=== PATIENT | male | born 1960 | race Asian ===

== ENCOUNTER 2016-05-12 20:19 | Inpatient (IN) | payer OTHER ==
[~2016-05-12] VITALS: Ht 172.7 cm; Wt 85.7 kg
[2016-05-12] MEDS ORDERED: NITROGLYCERIN 2% 1 GM OINT PKT TD STA (22:27)
[2016-05-12] MEDS ORDERED: morphine 2 MG INJ IV STA (22:27)
[2016-05-12] MEDS ORDERED: ONDANSETRON 4 MG INJ IV STA (22:27)
[2016-05-12] MEDS ORDERED: ASPIRIN 81 MG TAB PO STA (22:27)
[2016-05-12] MEDS ORDERED: METO-448 PO (22:43)
[2016-05-12] MEDS ORDERED: FAMO40TA52 PO (22:44)
[2016-05-12 22:46] LABS: ADD SCAN DIFF NO
[2016-05-12 22:51] LABS: BASOPHILS % 0.5 % (0.0-2.0); EOSINOPHILS # 0.1 10^3/ul (0.0-0.5); EOSINOPHILS % 1.8 % (0.0-7.0); HEMATOCRIT 44.4 % (42.0-52.0); HEMOGLOBIN 15.2 g/dl (14.0-18.0); LYMPHOCYTES # 0.8 10^3/ul (0.8-2.9); LYMPHOCYTES % 12.4 % (15.0-51.0); MEAN CORPUSCULAR HEMOGLOBIN 31.4 pg (29.0-33.0); MEAN CORPUSCULAR HGB CONC 34.2 g/dl (32.0-37.0); MEAN CORPUSCULAR VOLUME 91.7 fl (82.0-101.0); MEAN PLATELET VOLUME 11.2 fl (7.4-10.4); MONOCYTE # 0.5 10^3/ul (0.3-0.9); MONOCYTES % 8.8 % (0.0-11.0); NEUTROPHIL # 4.6 10^3/ul (1.6-7.5); NEUTROPHILS % 76.2 % (39.0-77.0); PLATELET COUNT 190 10^3/UL (140-415); RED BLOOD COUNT 4.84 10^6/ul (4.70-6.10); RED CELL DISTRIBUTION WIDTH 12.3 % (11.5-14.5); WHITE BLOOD COUNT 6.1 10^3/ul (4.8-10.8)
--- NOTE | 2016-05-12 22:58 | RADRPT ---
PROCEDURE: XR Chest. CLINICAL INDICATION: Chest pain. TECHNIQUE: Portable AP upright view of the chest was obtained. COMPARISON: None. FINDINGS: The cardiomediastinal silhouette is within normal limits. The lungs are clear. There is no evidenc e for pleural effusion, pneumothorax or pulmonary vascular congestion. The osseous structures are i ntact with no evidence for acute abnormality. Faint calcification within the aortic arch is visualiz ed. RPTAT:HJJR IMPRESSION: 1.No evidence for acute intrathoracic pathology. 2. Aortic atherosclerosis is present. Physician Lotus Date Time Electronically viewed and signed by Physician Lotus on 05/12/2016 22:57 JR/
[2016-05-12 23:10] LABS: ALBUMIN 4.4 g/dl (3.3-4.9)
[2016-05-12 23:11] LABS: INR 1.15; PARTIAL THROMBOPLASTIN TIME 37.2 Sec (25.0-35.0); POTASSIUM 4.1 mmol/L (3.5-5.1); PROTIME 14.7 Sec (12.2-14.2); PT RATIO 1.1
[2016-05-12 23:13] LABS: BILIRUBIN,INDIRECT 0.5 mg/dl (0-1.1); BILIRUBIN,TOTAL 0.5 mg/dl (0.2-1.3); CREATININE 0.92 mg/dl (0.61-1.24)
[2016-05-12 23:14] LABS: CALCIUM 9.3 mg/dl (8.4-10.2)
[2016-05-12 23:15] LABS: ALBUMIN/GLOBULIN RATIO 1.22
[2016-05-12 23:22] LABS: TROPONIN-I 0.047 ng/ml (0.00-0.12)
[2016-05-13] MEDS ORDERED: morphine 2 MG INJ IV PRN (07:30)
[2016-05-13] MEDS ORDERED: ONDANSETRON 4 MG INJ IV PRN (07:30)
[2016-05-13] MEDS ORDERED: hydrALAzine 20 MG INJ IV PRN (07:30)
[2016-05-13] MEDS ORDERED: NACL 0.9% 3 ML SYG IV SCH (07:30)
[2016-05-13] MEDS ORDERED: ACETAMINOPHEN 325 MG TAB PO PRN (07:30)
[2016-05-13] MEDS ORDERED: NITROGLYCERIN (SL) 0.4 MG TAB SL PRN (07:30)
[2016-05-13] MEDS ORDERED: ALBUTEROL/IPRATROPIUM (NEB) 3 ML AMP HHN PRN (07:30)
[2016-05-13 08:09] LABS: ADD SCAN DIFF NO
[2016-05-13 08:12] LABS: ABNORMAL IP MESSAGE 1; BASOPHILS % 0.4 % (0.0-2.0); EOSINOPHILS # 0.1 10^3/ul (0.0-0.5); EOSINOPHILS % 0.9 % (0.0-7.0); HEMATOCRIT 42.6 % (42.0-52.0); HEMOGLOBIN 14.8 g/dl (14.0-18.0); LYMPHOCYTES # 0.5 10^3/ul (0.8-2.9); LYMPHOCYTES % 6.7 % (15.0-51.0); MEAN CORPUSCULAR HEMOGLOBIN 31.6 pg (29.0-33.0); MEAN CORPUSCULAR HGB CONC 34.7 g/dl (32.0-37.0); MEAN CORPUSCULAR VOLUME 90.8 fl (82.0-101.0); MONOCYTE # 0.5 10^3/ul (0.3-0.9); MONOCYTES % 5.9 % (0.0-11.0); NEUTROPHIL # 6.7 10^3/ul (1.6-7.5); PLATELET COUNT 164 10^3/UL (140-415); RED BLOOD COUNT 4.69 10^6/ul (4.70-6.10); RED CELL DISTRIBUTION WIDTH 12.2 % (11.5-14.5); WHITE BLOOD COUNT 7.8 10^3/ul (4.8-10.8)
[2016-05-13 08:39] LABS: ALBUMIN 4.2 g/dl (3.3-4.9); POTASSIUM 3.7 mmol/L (3.5-5.1)
[2016-05-13 08:41] LABS: CREATININE 0.73 mg/dl (0.61-1.24)
[2016-05-13 08:42] LABS: ALBUMIN/GLOBULIN RATIO 1.27; BILIRUBIN,INDIRECT 0.8 mg/dl (0-1.1); BILIRUBIN,TOTAL 0.8 mg/dl (0.2-1.3); CALCIUM 8.9 mg/dl (8.4-10.2); TOTAL PROTEIN 7.5 g/dl (6.1-8.1)
[2016-05-13 08:43] LABS: CHOL/HDL RATIO 5.1 RATIO; MAGNESIUM 2.3 mg/dl (1.7-2.5)
--- NOTE | 2016-05-13 08:52 | HP ---
Date/Time of Note Date/Time of Note DATE: 05/13/16 TIME: 08:47 Assessment/Plan VTE Prophylaxis VTE Prophylaxis Intervention: LMWH Lines/Catheters IV Catheter Type (from Nrsg): Saline Lock Assessment/Plan Assessment/Plan 1. Chest Pain: r/o ACS - EKG is ne. first trop neg. will f/u rest - Oxygen, beta-joselin and PRN NTG and morphine - will order 2D-echo - cardiology as needed 2. HTN: not at goal - cont med and adjust as needed HPI/ROS Admit Date/Time Admit Date/Time Hx of Present Illness This is a 55 yo male with hx of HTN who presented to [facility] complaining of Chest pain. It is diffuse with radiation to left arm. No associated SOB, N/V or diaphoresis. Pt was seen by PCP yesterday and was given PPI, but chest pain returned. In ER, SBP was noted to be as high as in 170s. EKG and basic labs are within acceptable range. . PMH/Family/Social Social History Smoking Status: Never smoker Exam/Review of Systems Vital Signs Vitals Vital Signs Date Time Temp Pulse Resp B/P Pulse Ox O2 Delivery O2 Flow Rate FiO2 05/13/16 07:30 98.0 71 18 116/71 99 Room Air Exam Constitutional: alert, oriented, well developed Head: atraumatic, normocephalic Eyes: EOMI, PERRL Neck: non-tender, supple Respiratory: clear to auscultation, normal air movement Cardiovascular: nl pulses, regular rate and rhythm Gastrointestinal: non-tender, soft Extremities: normal pulses Labs Result Diagram: 05/13/1680205/13/16 08 Medications Medications Current Medications Ondansetron HCl (Zofran Inj) 4 mg Q6H PRN IV NAUSEA AND/OR VOMITING; Start 05/13 at 07:30 Aspirin (Aspirin) 81 mg DAILY PO ; Start 05/13/16 at 09:00 Nitroglycerin (Nitroglycerin (Sl Tab) 0.4 Mg) 1 tab Q5M PRN SL CHEST PAIN; Start 05/13/16 at 07:30 Acetaminophen (Tylenol Tab) 650 mg Q6H PRN PO PAIN LEVEL 1-3 OR FEVER; Start at 07:30 Morphine Sulfate (morphine) 2 mg Q4H PRN IV PAIN LEVEL 7-10; Start 05/13/16 at 07:30 Enoxaparin Sodium (Lovenox) 40 mg DAILY SC ; Start 05/13/16 at 09:00 Famotidine (Pepcid) 40 mg DAILY PO ; Start 05/13/16 at 09:00 Metoprolol Tartrate (Lopressor) 25 mg BID PO ; Start 05/13/16 at 09:00 Hydralazine HCl (Apresoline) 10 mg Q4H PRN IV SBP > 160; Start 05/13/16 at 07:30 IRINA MUIR MD May 13, 2016 08:52
[2016-05-13 08:55] LABS: TROPONIN-I 0.054 ng/ml (0.00-0.12)
[2016-05-13 09:13] LABS: THYROID STIMULATING HORMONE 1.26 MIU/L (0.465-4.680)
[2016-05-13] MEDS: ASPIRIN 81 MG TAB PO SCH (09:50)
[2016-05-13] MEDS: FAMOTIDINE 20 MG TAB PO SCH (09:50)
[2016-05-13] MEDS: METOPROLOL 25 MG TAB PO SCH ×2 (09:51→20:49)
[2016-05-13] MEDS: ENOXAPARIN 40 MG/0.4 ML SYG SC SCH (09:52)
[2016-05-13 15:12] VITALS: TEMP 98.4
[2016-05-13 15:55] VITALS: Ht 172.7 cm; Wt 85.7 kg
[2016-05-13 15:56] VITALS: BP 129/73; PULSE 77; RESP 18
[2016-05-13 16:36] VITALS: PULSE 71
--- NOTE | 2016-05-13 16:51 | CONS ---
DATE OF ADMISSION: 05/13/2016 DATE OF CONSULTATION: 05/13/2016 REASON FOR CONSULTATION: Chest pain, assess for acute coronary syndrome. REQUESTING PHYSICIAN: Dr. Salvador Ramon from the hospitalist service. HISTORY OF PRESENT ILLNESS: Mr. Devlin is a 55-year-old male with a history of hypertension who presen berna with 4 to 5 days of ongoing substernal chest pain described as initially stabbing sensation with pressure-like component radiating to his arms, both at rest and with exertion. Upon arrival in [facility] emergency department, temperature 97.3, blood pressure 175/101, pulse 78, respiratory rate 24, sat ting 100%. The patient's labs revealed white count 6.1, hemoglobin 15.2, platelet count 190, a sodi um of 145, potassium 4.1, creatinine 0.92, BUN 18, AST 43, ALT 77, BP 136. Troponin negative. LDL 146, HDL 42. TSH of 1.26. INR 1.1. The patient underwent a chest x-ray revealing no evidence of acute intrathoracic pathology. The pat ient's electrocardiogram revealed normal sinus rhythm at a rate of 83 with normal axis, normal inter vals, nonspecific ST throughout diffusely. The patient was subsequently admitted to the floor and _ ___ states chest pain has improved. The patient had an additional troponin return negative. PAST MEDICAL HISTORY: As above in HPI. MEDICATIONS CURRENTLY IN HOSPITAL: 1. Aspirin 81 mg daily. 2. Lovenox ____ subcu daily. 3. Pepcid 40 mg daily. 3. Metoprolol 25 mg p.o. b.i.d. 4. Nitroglycerin. 5. Tylenol p.r.n. 6. Morphine p.r.n. 7. DuoNebs. 8. Hydralazine IV push p.r.n. ALLERGIES: NO KNOWN DRUG ALLERGIES. SOCIAL HISTORY: No tobacco, ETOH or illicit drug use. FAMILY HISTORY: No history of sudden cardiac or early CAD. REVIEW OF SYSTEMS: As above in HPI. CONSTITUTIONAL: No fevers, chills. PULMONARY: No current shortness of breath. CARDIOVASCULAR: Intermittent chest pain. GASTROINTESTINAL: No vomiting. GENITOURINARY: No hematuria. MUSCULOSKELETAL: Degenerative joint disease. PSYCHIATRIC: The patient denies depression. NEUROLOGIC: No documented history of CVA. ENDOCRINE: No documented history of diabetes mellitus. PHYSICAL EXAMINATION: VITAL SIGNS: Temperature 97.3, blood pressure is 113/72, pulse 68, respirations 18, saturating 98%. GENERAL: The patient is alert, awake, in no acute distress. NECK: JVP approximately 8 cm water. CHEST: Fair air movement throughout. HEART: Regular rate and rhythm. Normal S1, S2, I/ systolic murmur, nondisplaced PMI. ABDOMEN: Positive bowel sounds, soft. EXTREMITIES: No pitting edema, 1+ pulses bilaterally, posterior palpable. LABORATORIES: As above in HPI, with most recent from today, sodium 142, potassium 3.7, creatinine 0 .7, BUN 18. Troponin negative. White blood count 7.8, hemoglobin 14.8, platelet count 164. IMAGING STUDIES: As above in HPI. No further imaging studies for my review at this time. ECG: As above in HPI. No further electrocardiograms for my review at this time. IMPRESSION: 1. Chest pain, assess for acute coronary syndrome. 2. Abnormal electrocardiogram, assess for acute coronary syndrome. 3. Hypertension, under reasonable control. RECOMMENDATIONS: 1. At this time, would maintain the patient on telemetry monitoring to follow rhythm and rate close ly. 2. Serial ____troponin ____patient's chest pain was not due to acute coronary syndrome or acute franky cardial infarction. 3. We will follow the patient's 2D echo for assessment of ejection fraction, wall motion and any ma ojey valve abnormalities. 4. We will continue to check serial EKGs to assess for any significant ongoing changes. EKG in the morning, EKG for any complaints of chest pain or change in rhythm. 5. Depending on the patient's ongoing troponin analysis, EKG analysis and echocardiogram findings, the patient will likely benefit from for further risk stratification with a stress test, which can b e scheduled as an inpatient versus outpatient. Thank you for allowing me to take part in the care of this patient. I will continue to follow along very closely with you. Further recommendations will be made as the patient progresses through the inpatient hospital clinical course. Dictated By: SALINA IBARRA/LEONEL Conf#: [id number] DID#: [id number] CC: SALVADOR RAMON MD;*EndCC*
[2016-05-13 20:22] VITALS: PULSE 70
[2016-05-13 20:23] VITALS: BP 102/50; RESP 16
[2016-05-13 23:57] VITALS: BP 120/67; RESP 16
[2016-05-14] VITALS (8 sets, daily range): BP systolic 131–142; BP diastolic 71–74; PULSE 60–76; RESP 16–20
[2016-05-14 06:57] LABS: ADD SCAN DIFF NO
[2016-05-14 07:03] LABS: CREATININE 0.9 mg/dl (0.61-1.24)
[2016-05-14 07:03] LABS: BASOPHILS % 0.2 % (0.0-2.0); EOSINOPHILS # 0.1 10^3/ul (0.0-0.5); HEMATOCRIT 43.5 % (42.0-52.0); HEMOGLOBIN 14.9 g/dl (14.0-18.0); LYMPHOCYTES # 0.7 10^3/ul (0.8-2.9); MEAN CORPUSCULAR HEMOGLOBIN 31.6 pg (29.0-33.0); MEAN CORPUSCULAR HGB CONC 34.3 g/dl (32.0-37.0); MEAN CORPUSCULAR VOLUME 92.4 fl (82.0-101.0); MEAN PLATELET VOLUME 11.4 fl (7.4-10.4); MONOCYTE # 0.8 10^3/ul (0.3-0.9); MONOCYTES % 9.5 % (0.0-11.0); NEUTROPHIL # 6.5 10^3/ul (1.6-7.5); NEUTROPHILS % 80.1 % (39.0-77.0); PLATELET COUNT 162 10^3/UL (140-415); RED BLOOD COUNT 4.71 10^6/ul (4.70-6.10); RED CELL DISTRIBUTION WIDTH 12.3 % (11.5-14.5); WHITE BLOOD COUNT 8.1 10^3/ul (4.8-10.8)
[2016-05-14 07:04] LABS: CALCIUM 9.1 mg/dl (8.4-10.2); PHOSPHORUS 3.5 mg/dl (2.5-4.9)
[2016-05-14 07:05] LABS: MAGNESIUM 2.2 mg/dl (1.7-2.5)
[2016-05-14 07:09] LABS: CHOL/HDL RATIO 4.9 RATIO
[2016-05-14] MEDS: ASPIRIN 81 MG TAB PO SCH (08:27)
[2016-05-14] MEDS: METOPROLOL 25 MG TAB PO SCH (08:27)
[2016-05-14] MEDS: FAMOTIDINE 20 MG TAB PO SCH (08:27)
[2016-05-14] MEDS: ENOXAPARIN 40 MG/0.4 ML SYG SC SCH (08:30)
--- NOTE | 2016-05-14 10:35 | PDOCDIS ---
Discharge Instructions CONDITION Patient Condition: Good HOME CARE INSTRUCTIONS: Special Diet: cardiac ACTIVITY: Activity Restrictions: No Restrictions FOLLOW UP/APPOINTMENTS Appointments Follow up with PCP as out-pt GARCIA TABOR MD May 14, 2016 10:35
[2016-05-14] MEDS ORDERED: METO-448 PO (10:37)
[2016-05-14] MEDS ORDERED: ATOR10TA65 PO (10:37)
[2016-05-14] MEDS ORDERED: ASPI81TA3 PO (10:37)
[2016-05-14] MEDS ORDERED: REGADENOSON 0.4 MG/5 ML SYG ONE (11:28)
--- NOTE | 2016-05-14 11:37 | DS ---
DATE OF ADMISSION: 05/13/2016 DATE OF DISCHARGE: 05/14/2016 CONSULTANTS: Dr. Greg Oviedo. PROCEDURES: 1. A 2D echocardiogram. 2. Cardiolite stress test. IMAGING: Chest x-ray: No evidence of acute intrathoracic pathology. Atherosclerosis is sent. DISCHARGE DIAGNOSES: 1. Atypical chest pain, acute coronary syndrome was ruled out by negative troponin and patient will be discharged on beta joselin, aspirin, statin. 2. Atherosclerosis of aorta on aspirin and statin. 3. Essential hypertension, well controlled on metoprolol. 4. Dyslipidemia. Patient has been started on Lipitor. LABORATORY DATA: Sodium 144, potassium 4.0, chloride 106, bicarbonate 27, BUN 20, creatinine 0.90, glucose 94. Hemoglobin is at 5.3. Triglyceride 105, total cholesterol 223, LDL 157, HDL 45. TSH 1 .260. WBC 8.1, hemoglobin 14.9, hematocrit 43.5, platelet 162. MEDICATIONS: 1. Aspirin 81 mg. 2. Lipitor 10 mg. 3. Pepcid 20 mg. 4. Metoprolol 25 mg p.o. b.i.d. ALLERGIES: NO KNOWN DRUG ALLERGIES. HOSPITAL COURSE: This is a 55-year-old gentleman with past medical history of hypertension who pres ents to [facility] secondary to having chest discomfort such as chest pain which i s diffuse with radiation to the left arm, not associated with shortness of breath, nausea, vomiting, diarrhea, or diaphoresis. The patient was seen by his primary care physician and was started on Pe pcid secondary to abdominal discomfort, although patient stated that this pain was different than th e pain that he had in the emergency room. His systolic blood pressure was high as 170. EKG and basic lab was within normal limits. The EKG did not show any sign of acute ST elevation or depression, n o sign of ischemia. The patient was started on aspirin, nitroglycerin, morphine and oxygen and was admitted to telemetry floor, was seen and evaluated by cardiology, Dr. Oviedo. A 2D echocardiogram was obtained. The patient was set up for Cardiolite stress test this morning, which he tolerated the procedure well. At this time, patient is medically stable to be discharged home with a close follo wup with his primary care physician as outpatient. PHYSICAL EXAMINATION: VITAL SIGNS: Temperature 98.3, pulse 67, respiration 20, blood pressure 131/71 and 142/74, oxygen 9 6% on room air. DIET: Cardiac diet. ACTIVITY: As tolerated. Dictated By: GARCIA TABOR MD PN/NTS Conf#: [id number] DID#: [id number]
--- NOTE | 2016-05-14 11:59 | CONS ---
Date/Time of Note Date/Time of Note DATE: 05/14/16 TIME: 11:56 Assessment/Plan Assessment/Plan Chief Complaint/Hosp Course IMPRESSION: 1. Chest pain, assess for acute coronary syndrome.-negative troponin x 3./NL EF by echo this admit 2. Abnormal electrocardiogram, assess for acute coronary syndrome. 3. Hypertension, under reasonable control. Recc: -Tele -Continue asa -Consider low dose BB to improve BP control in setting od chest pain -Lexiscan stress test today Problems: Consultation Date/Type/Reason Admit Date/Time May 13, 2016 at 00:24 Initial Consult Date 05/13/2016 Type of Consultation: Cardiology Reason for Consultation chest pain Referring Provider: SALVADOR REID MD Exam/Review of Systems Vital Signs Vitals Vital Signs Date Time Temp Pulse Resp B/P Pulse Ox O2 Delivery O2 Flow Rate FiO2 05/14/16 08:32 68 05/14/16 07:26 98.3 20 142/74 96 05/13/16 15:56 Room Air Intake and Output 05/13/16 05/13/16 05/14/16 15:00 23:00 07:00 Intake Total 600 ml 250 ml Balance 600 ml 250 ml Exam Review of Systems: CONSTITUTIONAL: No fevers, chills. PULMONARY: No sob CARDIOVASCULAR: intermittent chest pain GASTROINTESTINAL: No nausea/vomiting. GENITOURINARY: No hematuria/dysuria. MUSCULOSKELETAL: No myagias/arthalgias. PSYCHIATRIC: The patient denies depression. NEUROLOGIC: No weakness Constitutional: alert, oriented Psych: no complaints Head: normocephalic ENMT: mucosa pink and moist Neck: jvd (8cm water), supple Respiratory: clear to auscultation Cardiovascular: regular rate and rhythm Gastrointestinal: non-tender, soft Musculoskeletal: muscle tone (normal) Extremities: edema (none) Neurological: other (No focal deficits) Results Result Diagram: 05/14/16 0619 05/14/16 0614 Results 24 hrs Laboratory Tests Test 05/13/16 13:30 05/13/16 17:20 05/14/16 06:14 05/14/16 06:19 Troponin I 0.028 0.022 Anion Gap 15 Blood Urea Nitrogen 20 Calcium Level 9.1 Carbon Dioxide Level 27 Chloride Level 106 Cholesterol Level 223 H Cholesterol/HDL Ratio 4.9 Creatinine 0.90 Glucose Level 94 HDL Cholesterol 45 LDL Cholesterol, Calculated 157 Magnesium Level 2.2 Phosphorus Level 3.5 Potassium Level 4.0 Sodium Level 144 Triglycerides Level 105 Basophils # 0.0 Basophils % 0.2 Eosinophils # 0.1 Eosinophils % 1.0 Hematocrit 43.5 Hemoglobin 14.9 Lymphocytes # 0.7 L Lymphocytes % 9.0 L Mean Corpuscular Hemoglobin 31.6 Mean Corpuscular Hemoglobin Concent 34.3 Mean Corpuscular Volume 92.4 Mean Platelet Volume 11.4 H Monocytes # 0.8 Monocytes % 9.5 Neutrophils # 6.5 Neutrophils % 80.1 H Nucleated Red Blood Cells # 0.0 Nucleated Red Blood Cells % 0.0 Platelet Count 162 Red Blood Count 4.71 Red Cell Distribution Width 12.3 White Blood Count 8.1 Medications Medications Current Medications Ondansetron HCl (Zofran Inj) 4 mg Q6H PRN IV NAUSEA AND/OR VOMITING; Start 05/13 at 07:30 Aspirin (Aspirin) 81 mg DAILY PO Last administered on 05/14/16 08:27; Admin Dose 81 MG; Start 05/13/16 at 09:00 Nitroglycerin (Nitroglycerin (Sl Tab) 0.4 Mg) 1 tab Q5M PRN SL CHEST PAIN; Start 05/13/16 at 07:30 Acetaminophen (Tylenol Tab) 650 mg Q6H PRN PO PAIN LEVEL 1-3 OR FEVER Last administered on 05/13/16 16:16; Admin Dose 650 MG; Start 05/13/16 at 07:30 Morphine Sulfate (morphine) 2 mg Q4H PRN IV PAIN LEVEL 7-10; Start 05/13/16 at 07:30 Enoxaparin Sodium (Lovenox) 40 mg DAILY SC Last administered on 05/14/16 08:30 ; Admin Dose 40 MG; Start 05/13/16 at 09:00 Famotidine (Pepcid) 40 mg DAILY PO Last administered on 05/14/16 08:27; Admin Dose 40 MG; Start 05/13/16 at 09:00 Metoprolol Tartrate (Lopressor) 25 mg BID PO Last administered on 05/14/16 08: 27; Admin Dose 25 MG; Start 05/13/16 at 09:00 Hydralazine HCl (Apresoline) 10 mg Q4H PRN IV SBP > 160; Start 05/13/16 at 07:30 SALINA VAIL May 14, 2016 11:59
--- NOTE | 2016-05-14 13:08 | CARRPT ---
DATE OF PROCEDURE: 05/14/2016 PROCEDURE: Lexiscan Cardiolite stress test, electrocardiogram portion. INDICATION: Chest pain, assess for ischemia. BASELINE VITAL SIGNS AND ELECTROCARDIOGRAM: Pulse 66, blood pressure 143/83. Electrocardiogram rev eals normal sinus rhythm, rate of 64, normal axis, isolated T wave flattening in lead aVL. PROCEDURE: The patient underwent standard Lexiscan infusion protocol over 10 seconds followed by ra diolabeled tracer. The patient's test was stopped due to completion of protocol. Maximal achieved blood pressure during the test 128/73. Maximal achieved heart rate during the test 89. ELECTROCARDIOGRAM FINDINGS: The patient did not develop any new Lexiscan-induced ST or T wave camejo es from baseline abnormalities. No documented PVCs. SYMPTOMS: The patient had no complaints of chest pain or shortness of breath during stress testing. IMPRESSION: 1. No Lexiscan-induced ST or T wave changes from baseline abnormalities which are diagnostic of car diac ischemia. 2. No complaints of chest pain or shortness of breath during stress testing. 3. No documented premature ventricular contractions during stress testing. 4. Report of nuclear images to follow in separate dictation. Dictated By: SALINA IBARRA/LEONEL Conf#: [id number] DID#: [id number] CC: GARCIA TABOR MD;*EndCC*
--- NOTE | 2016-05-14 13:54 | RADRPT ---
PROCEDURE: Lexiscan myocardial perfusion study CLINICAL INDICATION: 55 -year-old patient complaining of chest pain. TECHNIQUE: Lexiscan 0.4 mg intravenously separate acquisition gated myocardial perfusion SPECT usi ng Tc 99m Myoview 29.4 mCi intravenously at stress and Tc-99m Myoview, 10.4 mCi intravenously at res t was performed using the rest/stress sequence. Poststress Myoview SPECT images were obtained in th e supine position. COMPARISON: No prior studies. FINDINGS: Perfusion images reveal a small mild partially reversible perfusion abnormality in the apical and di stal anteroseptal wall possibly related to soft tissue attenuation. Lexiscan post stress gated SPECT images demonstrate no wall motion abnormalities. IMPRESSION: 1. No definite evidence of stress-induced ischemia. 2. No wall motion abnormalities. 3. The left ventricle ejection fraction at stress is 67%. A call report was made to Dr. Oviedo at 01:53 p.m. on May 14, 2016. RPTAT: HH .Alexia Graham MD, MD Date Time Electronically viewed and signed by .Alexia Graham MD, on 05/14/2016 13:54 .L/
--- NOTE | 2016-05-14 14:24 | RADRPT ---
Echocardiogram Report Patient Name: AMEE WINTER Gender: Male Date: 1960 Study Date: 13-May-2016 Line Up Worker: Lico Campos RAFAEL Location: [facility] Ref. Physician: IRINA MUIR Quality: Good Procedures: Transthoracic echocardiogram with complete 2D, M-Mode, and doppler examination. Indications: Chest Pain. 2D/M Mode Doppler Measurement Value Normal Ranges Measurement Value Normal Ranges LVIDd 2D 5.6 3.5 - 5.6 cm AV Peak Ted 1.3 m/sec LVIDs 2D 2.9 2.1 - 4.1 cm AV Peak PG 7.2 mmHg LVPWd 2D 0.9 0.6 - 1.1 cm LVOT Peak Ted 1.0 m/sec IVSd 2D 0.9 0.6 - 1.1 cm LVOT Peak PG 3.8 mmHg AoR Diam 2D 3.0 2.0 - 3.7 cm MV E Peak Ted 0.6 m/sec EDV 2D 156.8 cm3 MV A Peak Ted 1.0 m/sec ESV 2D 23.3 cm3 MV E/A 0.6 LA Dimen 2D 4.0 2.3 - 4.0 cm MV Decel Time 158 msec MV Decel Emanuel 4 MV E/A 0.6 Findings Left Ventricle: Normal left ventricular systolic function. Normal left ventricular cavity size. Normal left ventricular wall thickness. Ejection fraction is visually estimated at 65 %. Tissue Doppler/Mitral Doppler indices are consistent with impaired relaxation (Stage I diastolic dysfunction). Right Ventricle: Normal right ventricular size. Normal right ventricular systolic function. Left Atrium: The left atrium is normal in size. Right Atrium: The right atrium is normal in size. Mitral Valve: Mitral valve leaflets appear moderately thickened. Echo dense structure seen, likely on anterior leaflet. Differential includes flail leaflet, ruptured chordae and/or vegetation. Mild mitral annular calcification. Mild mitral valve regurgitation. The regurgitation jet is eccentrically directed which may underestimate the severity of mitral regurgitation. Aortic Valve: No hemodynamically significant aortic stenosis by doppler. Aortic cusps appear mildly calcified. Trace aortic valve regurgitation. Tricuspid Valve: Normal appearance and function of the tricuspid valve with trace physiologic regurgitation. Pulmonic Valve: Normal pulmonic valve appearance. Pericardium: Normal pericardium with no significant pericardial effusion. Aorta: Normal aortic root. IVC: Normal size and normal respiratory collapse consistent with normal right atrial pressure. Conclusions 1.Normal left ventricular systolic function. Normal left ventricular cavity size. Normal left ventricular wall thickness. Ejection fraction is visually estimated at 65 %. Tissue Doppler/Mitral Doppler indices are consistent with impaired relaxation (Stage I diastolic dysfunction). 2.Normal right ventricular size. Normal right ventricular systolic function. 3.The left atrium is normal in size. 4.The right atrium is normal in size. 5.Mitral valve leaflets appear moderately thickened. Echo dense structure seen, likely on anterior leaflet. Differential includes flail leaflet, ruptured chordae and/or vegetation. Mild mitral annular calcification. Mild mitral valve regurgitation. The regurgitation jet is eccentrically directed which may underestimate the severity of mitral regurgitation. 6.No hemodynamically significant aortic stenosis by doppler. Trace aortic valve regurgitation. 7.Normal appearance and function of the tricuspid valve with trace physiologic regurgitation. 8.Normal pericardium with no significant pericardial effusion. 9.Dr. Giles made aware of findings. Electronically Signed By: Matthew Lee 14-May-2016 14:24:18 -0800 Patient Name: AMEE WINTER Study Date: 13-May-2016 [id number]
[2016-05-14] MEDS ORDERED: ATORVASTATIN 20 MG TAB PO SCH (21:00)
--- NOTE | 2016-05-15 13:39 | RADRPT ---
Vent Rate: 67 bpm RR Interval: 0 msec [place] Interval: 168 msec QRS Duration: 98 msec QT Interval: 388 msec QTC Interval: 409 msec P-R-T [place]: 64 - 57 - 61 degrees Normal sinus rhythm Normal ECG Electronically Signed By: Ortiz iL [id number]
== END 2016-05-14 18:55 | disposition home or self-care (01) | DRG 313 ==
LOC: E/R 20:19 → TEL 05-13 00:24
PROVIDERS: ADMIT Internal Medicine; ATTEND Internal Medicine
DX: R07.89 Other chest pain (principal); I10 Essential (primary) hypertension; I70.0 Atherosclerosis of aorta; E78.5 Hyperlipidemia, unspecified; Z88.0 Allergy status to penicillin; R94.31 Abnormal electrocardiogram [ECG] [EKG]
CPT/HCPCS: 71010; 78452; 80048; 80053; 80061; 83036; 83735; 83880; 84100; 84443; 84484; 85025; 85610; 85730; 87081; 93005; 93017; 93306; A9500; A9505; J1650; J2270; J2405; J2785